=== PATIENT | female | born 1940 | race Caucasian/White ===

== ENCOUNTER → 2024-03-19 09:18 | Outpatient (REF) | payer OTHER, SELFPAY ==
--- NOTE | 2024-03-05 13:32 | TAVREVAL ---
Documented by User: KATY Zimmer 03/05/24 13:41
TAVR Evaluation
Transthoracic Echocardiogram
Transthoracic Echocardiogram Date: 01/01/24
P/M: 94/55
SAHARA: 0.8
AI: mild
EF %: 60
MR/MAC: mild mac and mild MR
Catherization
Catherization Date: 02/20/24
M
SAHARA: 0.42
Findings: severe aortic stenosis, mild to moderate non-obstructive CAD
CAT Scan
CAT Scan Date: 03/19/24
Frailty
MMSE ____: N/A
Physician Visits
Date of Visit CT surgeon: Tito: 03/19/24
Date of Visit Interventionalist:Jerald/Saundra/Harrison/Aurelio: 03/04/24
Primary Scale Balancer Name: Concepcion
Date of Visit Primary Scale Balancer: 01/31/24
PCP Name: Alireza
Dentist Name: Luisito Adams DDS
Review of Systems
Review of Systems: Positive for Dyspnea
Plan
Plan:
03/04/2024: Consult received from Dr. Marques. Called and left voicemail with the patient's daughter, Linette David, with contact information.
03/05/2024: Called and spoke with Linette David. Reviewed the TAVR evaluation process. Emailed all instructions and prescriptions. Mother will go to [facility] today for BMP. CT scan scheduled for 03/19/[address] Francis to follow that same
day. Will email dental clearance to dentist today. Allowed for and answered questions.

Documented by User: KATY Murray 03/22/24 09:29
TAVR Evaluation
Plan
Plan:
03/04/2024: Consult received from Dr. Marques. Called and left voicemail with the patient's daughter, Linette David, with contact information.
03/05/2024: Called and spoke with Linette David. Reviewed the TAVR evaluation process. Emailed all instructions and prescriptions. Mother will go to [facility] today for BMP. CT scan scheduled for 03/19/[address] Francis to follow that same
day. Will email dental clearance to dentist today. Allowed for and answered questions.
03/22/2024: Reviewed Ms. Pimentel with the heart team in the SDM meeting and the team is agreeable to proceed with TF TAVR via (L) access. D/t CAD the team favors a 23mm S3, no BAV and a slow inflation. VM left for patient requesting a CB to schedule
TAVR.
== END ==
LOC: RAD 09:18
PROVIDERS: ATTENDING PHYSICIAN Thoracic Surgery (Cardiothoracic Vascular Surgery); FAMILY PHYSICIAN Internal Medicine
DX: I35.0 Nonrheumatic aortic (valve) stenosis (principal)
CPT/HCPCS: 74174; 75572; Q9967

== ENCOUNTER 2024-04-11 07:34 | Inpatient (IN) | payer OTHER, SELFPAY ==
[2024-04-02 11:43] VITALS: BMI 30.5
[2024-04-02 13:06] LABS: % Basophils 0.5 % (0-2); % Eosinophils 1.5 % (0-6); % Immature Granulocytes 0.3 % (0-0.5); % Lymphocytes 15.3 % (20.5-51.1); % Monocytes 8.7 % (1.7-9.3); % Neutrophils 73.7 % (42.2-75.2); Absolute Eosinophils 0.1 10^3/uL (0-0.7); Absolute Lymphocytes 1.1 10^3/uL (1.2-3.4); Absolute Monocytes 0.6 10^3/uL (0.1-0.6); Absolute Neutrophils 5.4 10^3/uL (1.4-6.5); Hematocrit 34.2 % (37.0-47.0); Hemoglobin 11.4 g/dL (12.0-16.0); Mean Corp Hgb Conc. 33.3 g/dL (33.0-37.0); Mean Corpuscular Hgb 32.1 pg (27.0-31.0); Mean Corpuscular Volume 96.3 fL (81.0-99.0); Mean Platelet Volume 9.4 fL (7.4-10.4); Nucleated Red Blood Cells % 0 %; Platelet Count 301 10^3/uL (130-400); Red Blood Cell Count 3.55 10^6/uL (4.20-5.40); Red Cell Dist. Width 13.5 % (11.5-14.5); White Blood Cell Count 7.4 10^3/uL (4.8-10.8)
[2024-04-02 13:08] LABS: Urine Albumin Negative (Neg - Trace); Urine Bilirubin Negative (Negative); Urine Character Clear (Clear); Urine Color Yellow; Urine Glucose Negative (Negative); Urine Ketone Negative (Negative); Urine Leukocyte Negative (Negative); Urine Nitrite Negative (Negative); Urine Occult Blood Trace (Negative); Urine Specific Gravity 1.015 (<1.030); Urine Urobilinogen Negative (Neg - 1+)
[2024-04-02 13:15] LABS: INR 1.47; PT 17.7 Sec (11.4-14.6)
[2024-04-02 13:17] LABS: ALT (SGPT) 17 U/L (0-35); AST (SGOT) 32 U/L (14-36); Albumin 4.1 g/dl (3.5-5.0); Alkaline Phosphatase 88 U/L (38-126); Blood Urea Nitrogen 15 mg/dl (7-17); Carbon Dioxide 27 mmol/L (22-30); Chloride 103 mmol/L (98-107); Direct Bilirubin 0.2 mg/dl (0.0-0.4); Estimated Creatinine Clearance 61 ml/min; Glucose 94 mg/dl (70-99); Potassium 4.7 mmol/L (3.5-5.1); Sodium 138 mmol/L (135-145); Total Bilirubin 0.9 mg/dl (0.2-1.3); Total Protein 6.8 g/dl (6.3-8.2); eGFR > 60.00
[2024-04-02 13:19] LABS: Urine Urothelial Cell 0-2 /LPF (FEW)
[2024-04-02 13:20] LABS: Urine Bacteria Few (Negative); Urine White Cell 0-2 /HPF (0-5)
[2024-04-02 13:22] LABS: Glycohemoglobin (HgbA1c) 5.6 % (4.0-5.6)
[2024-04-02 13:26] LABS: NT-proBNP 2900 pg/ml
--- NOTE | 2024-04-02 14:15 | CM ---
Chart reviewed. Met with the patient and her friend in [facility]. Reviewed preoperative and postoperative instructions and restrictions. Gave patient 2 soaps, along with showering guidelines. Patient is independent of ADLS, lives alone in a 2 [address] but
also lives in a condo, with elevator access in [place], [place] which is where she is most of the time. When patient is discharged she is going to her daughters house at [address] [place] [id number]. Patient does not use any DME. Patient
is agreeable to a home visit by CT Transitional RN if her daughters house is within the driving radius. Plan is for the patient to go to her daughters house with CT Transitional RN vs follow up phone call from CT Transitional RN. CM to follow
[2024-04-11] VITALS (21 sets, daily range): BP systolic 100–192; BP diastolic 54–102; BMI 29.1
--- NOTE | 2024-04-11 08:37 | W.CVOR.SURPR ---
CVOR Surgeon Immed Pre Op
-
I have examined this patient prior to performance of the scheduled procedure.
The patient's condition is unchanged from the time of the dictated/written History and
Physical and the patient is able to undergo the scheduled procedure.
TF TAVR
Rescue Status: Full at the discretion of her procedural team
[2024-04-11 10:18] LABS: ACT-LR - POC 290 Seconds (116-155)
[2024-04-11 10:28] LABS: ACT-LR - POC 245 Seconds (116-155)
--- NOTE | 2024-04-11 10:44 | W.PN.CT.SURG ---
CT Surgery Operative Note
-
OPERATIVE REPORT
Preoperative Diagnosis: Severe aortic valve stenosis, symptomatic
Postoperative Diagnosis: Same
Procedure(s) Performed: Right trans femoral TAVR with a 23mm Buchanan TAVR valve
Date of Procedure: 04/11/2024
Comorbidities:
1. Severe aortic stenosis, symptomatic
2. 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
3. Atrial fibrillation
4. Hypertension
5. Hyperlipidemia
6. Arthritis
7. Mild to moderate nonobstructive coronary artery disease
8. Shingles
9. Short of sleep apnea
Cardiac Surgeon: Jose Plaza MD, MS
Educational Guidance Counselor: Jhoan Schwartz MD
Anesthesia: Conscious Sedation and Local Analgesia
EBL: 120cc
Products: none
Implant: 23 mm Buchanan SYDNEE ultra TAVR Valve, SN: [id number]
Indication(s) for Procedures: 84-year-old female with symptomatic severe aortic stenosis. CT-TAVR protocol revealed acceptable anatomy for TAVR access and implantation. Multidisciplinary team discussion between interventional cardiology,
cardiology, and cardiac surgery all deemed this an appropriate procedure.
Start time: 0951hrs
Deployment time: 1019hrs
End time: 1035hrs
Radiation Dose (mGy): 170
DAP (cm2.Gy): 25.4409
Fluoroscopy time (minutes): 7.0
Contrast volume (ml): 70
TAVR gradient (mmHg): 6mmHg
Heparin Dose: 6500units
Protamine Dose: 30mg
Final Valve Positionin/20
Findings: Preoperative LVEF was 60% and was 60% following TAVR without inotropic support. Function was overall normal without regional wall motion abnormalities or dyskinesia. The aortic valve was well seated without detectable PVL and mean gradient
across the new valve was 5-8mmHg. following deployment of the TAVR valve, she resumed her regular rhythm and did not require any additional pacing. There was successful placement of 23 mm TAVR valve without acute complications. LVEDP pre-TAVR was
found to be 25 mmHg indicating acute on chronic congestive systolic and diastolic heart failure. Lasix will be given in the ICU.
Access:
1. Device - right common femoral, perclose x 2
2. Pigtail -left common femoral artery [+ 6Fr angioseal]
3. Transvenous Pacer -femoral vein
Description of Procedure: The patient was taken to the pipelines laborer. Their identity and procedure to be performed were verified and they were positioned supine on the pipelines laborer table. Induction via conscious sedation. The patient was then prepped and
draped from chin to thigh in a sterile fashion. A preoperative time-out was performed with all members of the team present. Arterial and venous access was performed using fluoroscopy and ultrasound guidance with micropuncture and Seldinger
technique. Two perclose devices were used on the device side followed by access to the aorta with a stiff wire to facilitate E-sheath placement. Heparin was given. A stiff straight wire and AL-1 catheter was used to cross the aortic valve. An LVEDP
was measured here. The stiff wire was exchanged for an extra stiff coiled tip wire. The valve was prepped and mounted on to the device carrier. An ACT of >250 was achieved. We verified x 3 that the valve was mounted in the correct orientation with
the skirt of the valve directed toward the tip of the device carrier. We advanced the device into the descending thoracic aorta where the valve was them mounted onto the balloon under fluoroscopy. The device was flexed and advanced over the arch
into the root and positioned across the aortic valve. Contrast fluoroscopy was used to visualize the prosthesis across the valve and to guide positioning. A pigtail catheter in the RCC as used as a guide. We aimed to have the bottom of the device
marker at the annular hinge point. The device sheath was pulled back. We performed a quick pre-deployment time out. The pacer was turned on and had capture. Blood pressure fell accordingly, angiography was done to verify the intended final placement
and the valve was deployed with 5 seconds of rapid pacing to nominal volume. The balloon was deflated and the pacer was turned off. We had recovery of vitals. The device carrier was unflexed and positioned back in the descending thoracic aorta. A
transthoracic echocardiogram was performed. The device was removed from the E-Sheath maintaining wire access followed by removal of the E-sheath as we cinched down the perclose devices. There was acceptable hemostasis. The pigtail was withdrawn into
the descending/abdominal and completion aortogram with runoff run-off angiography was performed. There was no stenosis or dissection of bilateral iliofemoral systems. There was acceptable hemostasis of bilateral groins and manual pressure was held
following wire removal. Low dose protamine was administered after checking another ACT.
All instrument, sponge, and needle counts were confirmed to be correct x 2 at the end of the operation. The patient was transferred to the cardiac intensive care unit in stable condition.
I, Dr. Jose Plaza, was present, scrubbed for, and performed all critical elements of this procedure.
Jose Plaza MD
Cardiothoracic Surgeon
[facility]
This operative dictation was created using the [employer] dictation system. Please excuse any grammatical, typographical, or 'sound alike' errors
--- NOTE | 2024-04-11 10:55 | ITS.CL.TAVR ---
Forest Fire Management Officer - TAVR Report
TAVR PRocedure
Procedure Report:
TRANSCATHETER AORTIC VALVE REPLACEMENT REPORT
Date: 04/11/24
Referring physician: Tito Javier
Preop diagnosis: severe aortic stenosis
Postop diagnosis: severe aortic stenosis
Procedure: transcatheter aortic valve replacement (TAVR) using a #23 Buchanan XIAO S3 Ultra
Operators: Vaibhav Schwartz MD, PhD; CINDY Walden, [facility]; Umesh Marques MD, [facility]
Findings: severely calcified and stenotic aortic valve
Anesthesia: Conscious sedation was provided by the anesthesia staff.
Estimated blood loss: negligible
Complications: none
Condition: stable
Procedure:
The patient was brought to the cardiac laborer cement gun placing after consent and was prepped and draped in standard sterile fashion. Conscious sedation was provided by the anesthesia staff. After a 'Time Out,' the left common femoral artery and vein were access
using a modified Seldinger technique with a micropuncture kit under ultrasound guidance. A 6 Telugu sheath was placed in both vessels. A temporary pacing wire was advanced through the left femoral vein and into the right ventricle, capture verified,
and set to backup. A 5Fr angled pigtail catheter was advanced through the left femoral sheath and seated in the right coronary cusp. Angiography confirmed co-planar angle. The right common femoral artery (device side) was accessed using a modified
Seldinger technique with a micropuncture kit under ultrasound guidance followed by placement of a 6Fr sheath. The tract was dilated with an 8Fr sheath, followed by placement of two Perclose sutures in 'pre-close' fashion and replacement of the 8F
sheath.
An AL-1 catheter was advanced through the 8Fr sheath, the J wire was exchanged for an Amplatz Superstiff wire in the descending aorta, and the catheter and the 8 Fr sheath removed. A 16 Fr dilator was advanced over the Superstiff wire to the
descending aorta. The dilator was removed and the 14 Fr Buchanan E-sheath was inserted over the wire and into the descending aorta. Heparin 6500 units was given. The XIAO S3 was prepared on the back table. Orientation was confirmed by both
physicians. The AL-1 catheter was re-advanced through the E-sheath to the level of the ascending aorta. The Superstiff wire was removed and a soft tip straight wire was advanced through the AL-1 and used to cross the aortic valve and the catheter
advanced into the left ventricle. The straight wire was exchanged for an Amplatz Extrastiff wire with curved proximal end placed in the left ventricle apex and the catheter removed. ACT was checked and confirmed to be > 250 seconds.
The valve was advanced over the Extrastiff wire and into the descending aorta. The balloon was withdrawn and the valve was mounted on the balloon. The valve was advanced over the aortic arch and into the aortic valve annulus. The pusher device was
withdrawn to allow for balloon expansion. Low volume aortography confirmed good position of the valve. The valve was deployed during rapid ventricular pacing. Echocardiography and aortography confirmed a good result with no aortic valve
insufficiency and a 6 mmHg mean gradient. The valve deployment system was removed. Stable rhythm was confirmed and the pacemaker was removed. The Buchanan E sheath was then removed and hemostasis obtained with the two Perclose sutures. Final
angiography demonstrated no evidence of ileofemoral dissection/perforation and good runoff below the common femoral artery. The pigtail catheter was removed and hand injection angiography through the left common femoral artery sheath demonstrated
appropriate HIGH SCHOOL FOOTBALL COACH placement. The left common femoral artery sheath removed and closed with a 6 Fr Angioseal. The left femoral venous sheath was removed and manual pressure was applied with excellent hemostasis.
Radiation
Dose (mGy): 170.0
DAP (cm2.Gy): 25.4409
Fluoroscopy time (minutes): 7.0
pre-deployment LV pressure (s/x, mmHg): 185/13 (EDP 25)
post-deployment mean TAVR echo gradient (mmHg): 6
Conclusions:
1. successful placement of #23 Xiao S3 Ultra aortic valve via right transfemoral approach with no acute complications.
2. acute on chronic heart failure with elevated filling pressures (LVEDP = 25 mmHg).
Vaibhav Schwartz MD, PhD
Copy to: Andres Lay MD; Brennen Francis MD; Tito Javier MD
--- NOTE | 2024-04-11 12:19 | CM ---
Reviewed chart. Mrs. Pimentel is in the operating room today. She will be going to stay with her daughter in [place] when ready for discharge. Prior to admission she spends most of her time in her condo in [place]. Prior to
admission she was independent with ambulation and adls. She does not have any DME in the home. Medical work-up in progress. The discharge plan is to go to her daughter's home and a home visit by the Cardiothoracic Transitional Care Nurse when
medically stable.
--- NOTE | 2024-04-11 12:36 | PTCARENOTE ---
Patient received from bolt labeler. Bedrest maintained, A fin 40-50's. Pulses verified with Doppler.
--- NOTE | 2024-04-11 13:17 | PTCARENOTE ---
Patient soundly sleeping, snoring. A-Fib with some 2 second pauses HR 37-58. Notified Scarlett Nia, right groin mildly tender. Pulses with Doppler on the right, palpable on the left
--- NOTE | 2024-04-11 15:12 | PTCARENOTE ---
Bladder scan 894, having pressure unable to void. Straight cath 1300 cc of yellow urine.
[2024-04-11] MEDS: LASIX 20 MG IV (15:21)
[2024-04-11] MEDS: ANCEF 5 IV (15:22)
--- NOTE | 2024-04-11 15:53 | PTCARENOTE ---
BP elevated 192/83. Home BP medications resumed. Patient out of bed, walked to the bathroom, voided, missed hand, pale yellow urine. In chair. Right groin dressing old bloody scant drainage.
[2024-04-11] MEDS: NORVASC 2.5 MG PO (16:30)
[2024-04-11] MEDS: ZESTRIL 10 MG PO (16:30)
--- NOTE | 2024-04-11 21:08 | PTCARENOTE ---
Received patient at change of shift. Left groin site dry, clean, intact, and soft to touch. Left pedal pulse normal on palpation. Right groin site old drainage and tender to touch. Right pedal pulse with doppler. Applied new dressing to right groin.
Neuro intact, alert and oriented. Ambulating to chair and bathroom. Urinating. Steady on feet. HR 50s-60s, A-Fib. Elevated BP-- 173/61, 183/71. GUANACO Fernandez, was bedside. Put in PRN order for Hydralazine. BP rechecked-- 157/78. Discussed
calling care team with any changes. Call yarbrough within reach.
--- NOTE | 2024-04-12 03:13 | W.PN.CT ---
Documented by User: [email or web address] Dotson PA-C 04/12/24 03:13
Today's Communication / Plan
-
-pod #1
-no issues overnight
-in a-fib 50s-60s overnight. No significant pauses. Continue 25 mg Toprol
-diuresed 1775cc with iv Lasix
-hypertensive postop - got Norvasc and Lisinopril 04/11- continue
-resume Eliquis 04/12 for a-fib
-Echo today
-current meds (Eliqius, Norvasc, Lisinopril, Toprol)
-encourage IS, OOB, ambulate
-possible d/c soon
Assessment / Plan
-
- Severe symptomatic - s/p Right trans femoral TAVR with a 23mm Buchanan TAVR valve on 04/11/24, pod #1
- LVEDP pre-TAVR was found to be 25 mmHg indicating acute on chronic congestive systolic and diastolic heart failure- diuresed 1775 cc with iv Lasix
- Preop LVEF was 60% and was 60% following TAVR without inotropic support; no wma or dyskinesia. The aortic valve was well seated without detectable PVL and mean gradient across the new valve was 5-8mmHg.
- Acute on chronic congestive systolic and diastolic heart failure
- Chronic Atrial fibrillation- on Eliquis preop
- Hypertension
- Hyperlipidemia
- Arthritis
- Mild to moderate nonobstructive coronary artery disease
- Shingles
- GWEN - on CPAP
- Anxiety
- Acute postop urinary retention- straight cathed postop - resolved
Discussed patient care with: Nursing and Care Team
Subjective
Procedure
s/p Right trans femoral TAVR with a 23mm Buchanan TAVR valve on 04/11/24
-
Date of Service: April 12, 2024
Objective Data
-
PT 17.7 Sec (11.4-14.6) H 04/02/24 12:12
INR 1.47 04/02/24 12:12
APTT 42.0 Sec (23.4-35.0) H 04/02/24 12:12
Vital Signs
Vital Signs
Temp Pulse Resp BP Pulse Ox
98.6 F 77 16 158/80 97
04/11/24 23:02 04/12/24 01:15 04/11/24 23:02 04/11/24 22:55 04/11/24 23:02
CT Intake/Output/Weight
04/11/24 04/11/24 04/12/24
06:59 18:59 06:59
Intake Total 500 / 500
Output Total 1775 / 2125 350 / 2125
Balance -1275 / -1625 -350 / -1625
SaO2: 97
Physical Exam
-
General: Awake and AOx3
Cardiovascular: Irregular rate & rhythm, No Murmurs and No Rub
Respiratory: Decreased Breath Sounds
Incision: Other (groins are cdi, soft, no hematoma b/l. R groin slightly tender to touch)
Extremities: Other (trace edema b/l. DPs by Doppler b/l)
Data Reviewed
-
Lab Results: Results Reviewed
Medications: Active Meds Reviewed
Chest X-Ray: Report Reviewed and Image Reviewed
ECG: Report Reviewed and Image Reviewed

Documented by User: KATY Raya 04/12/24 10:28
Assessment / Plan
-
- Severe symptomatic - s/p Right trans femoral TAVR with a 23mm Buchanan TAVR valve on 04/11/24, pod #1
- LVEDP pre-TAVR was found to be 25 mmHg indicating acute on chronic congestive systolic and diastolic heart failure- diuresed 1775 cc with iv Lasix
- Preop LVEF was 60% and was 60% following TAVR without inotropic support; no wma or dyskinesia. The aortic valve was well seated without detectable PVL and mean gradient across the new valve was 5-8mmHg.
- Acute on chronic congestive systolic and diastolic heart failure
- persistent Atrial fibrillation- on Eliquis preop
- Permanent atrial fibrillation
- Hypertension
- Hyperlipidemia
- Arthritis
- Mild to moderate nonobstructive coronary artery disease
- Shingles
- GWEN - on CPAP
- Anxiety
- Acute postop urinary retention- straight cathed postop - resolved
[2024-04-12 03:59] VITALS: BP 176/75
[2024-04-12 04:31] LABS: Hematocrit 33.3 % (37.0-47.0); Hemoglobin 11.4 g/dL (12.0-16.0); Mean Corp Hgb Conc. 34.2 g/dL (33.0-37.0); Mean Corpuscular Hgb 33.4 pg (27.0-31.0); Mean Corpuscular Volume 97.7 fL (81.0-99.0); Mean Platelet Volume 9.2 fL (7.4-10.4); Platelet Count 196 10^3/uL (130-400); Red Blood Cell Count 3.41 10^6/uL (4.20-5.40); Red Cell Dist. Width 13.3 % (11.5-14.5); White Blood Cell Count 10.2 10^3/uL (4.8-10.8)
[2024-04-12] MEDS: NORVASC 2.5 MG PO (04:31)
[2024-04-12] MEDS: ZESTRIL 10 MG PO (04:31)
--- NOTE | 2024-04-12 04:52 | PTCARENOTE ---
Addendum entered by Katharine Torres RN 04/12/24 06:20:
Improved BP-- 159/84.
Original Note:
Patient rested well overnight. A-Fib 60s-70s. Elevated BP this morning 176/75. Updated GUANACO Fernandez. Orders placed for Lisinopril and Norvasc-- see MAR. No changes in groins. Right groin devulcanizer tender to touch, soft. Educated patient to
call RN for assistance out of bed.
[2024-04-12 04:54] LABS: Blood Urea Nitrogen 19 mg/dl (7-17); Calcium 9.3 mg/dl (8.4-10.2); Carbon Dioxide 29 mmol/L (22-30); Chloride 100 mmol/L (98-107); Estimated Creatinine Clearance 70 ml/min; Glucose 118 mg/dl (70-99); Sodium 136 mmol/L (135-145); eGFR > 60.00
[2024-04-12 06:14] VITALS: BP 159/84
[2024-04-12 06:43] VITALS: BP 176/87
[2024-04-12 07:01] VITALS: BP 143/74
[2024-04-12 07:27] VITALS: BMI 29.9
--- NOTE | 2024-04-12 07:58 | W.PN.ANS.POP ---
Anesthesia Post Operative
- Anesthesia Post Op Note
Vital Signs Stable-See Nursing Note: Yes
Airway Patent: Yes
Adequate Pain Control: Yes
Change in Mental Status: No
Current Postoperative Nausea & Vomiting: No
Anesthesia Complications: No
General Anesthetic Recall: No
Unplanned Admission: No
Post Op Hydration Adequate: Yes
- -
Pt awake and alert- OOB to chair with no anesthesia r/t c/o at time of post op visit.
--- NOTE | 2024-04-12 07:59 | W.DCSUMMARY ---
Discharge Summary
Discharge Data
Date of Admission: 04/11/24
Date of Discharge: 04/12/24
-
Pending Results: No
Hospital Course
Primary care physician: RADHA Lay
Outpatient on site property manager: Tito Javier
Inpatient consultants: [facility]
Procedures:
1. TAVR
Primary Diagnosis:
1. Severe aortic valve stenosis
Secondary Diagnoses:
1. acute on chronic congestive systolic and diastolic heart failure (LVEDP pre-TAVR 25 mmHg)
3. permanent Atrial fibrillation
4. Hypertension
5. Hyperlipidemia
6. Arthritis
7. Mild to moderate nonobstructive coronary artery disease
8. Obstructive sleep apnea
HPI: 84-year-old female was electively admitted on 04/11/2024 for TAVR
Hospital course: Patient underwent right trans femoral TAVR #23mm Buchanan valve with Drs. Jose Plaza/Anshu Marques. Valve was deployed without incident. Patient received Lasix 20 mg intravenous postop for LVEDP 25. Patient was hypertensive in
the postop period as she had been taking morning meds. Patient received lisinopril and Norvasc doses. Chest x-ray reported no pneumothorax. TTE completed on 04/12 reported EF of 65-70%, AV gradients of 36/21mmHg and trivial paravalvular leak.
Patient instructed on need to inform medical and EF of 65-70%, AV gradients of 36/21, and trace paravalvular AI. Providers of tissue aortic valve replacement and need for prophylactic antibiotics prior to dental and other invasive procedures.
Patient ambulated in room without difficulty and is deemed stable for discharge to home today.
Home medication changes:
none
Discharge Plan
-
Patient Disposition: Home (Routine Discharge)
Discharge Diagnosis/Procedures: TF-TAVR
Condition: Good
Diet: Low Cholesterol and 2 Gram Sodium
Activity: As tolerated
Driving Restrictions: No driving for 1 week
Bathing Restrictions: OK to Shower
Others Tests: Follow Up Echocardiogram: 05/13/2024 at 10:40am in Dr. Javier's office.
Other Services: Cardiac Rehab
Wound Care: Please do not apply lotions, creams or powders to groin areas. Please monitor for increased redness, pain, swelling or drainage. Call your doctor if any occur.
Specialty Instructions: Weigh Daily- Call MD for wt gain/loss 3 lbs overnight/5 lbs in 1 week
Activity Restrictions/Additional Instructions:
Notify medical providers of history of aortic valve replacement and need for antibiotic prophylaxis prior to dental and invasive procedures
Referrals:
CT Transitional Care Nurse [Outside] - in one to two days
(
The Cardiothoracic Transitional Care Nurse will call you to set up a visit in 1-2 days.)
Ino Brandt MD [Active] - 05/09/24 3:00 pm
Quang Lay MD [Family Provider] - in four to six weeks (Please make an appointment in four to six weeks. )
Prescriptions:
New
acetaminophen 325 mg Tablet
650 mg PO Q4HPRN PRN (Reason: PAYTON, mild pain, or fever >101F) Qty: 0 0RF
Continued
amlodipine 2.5 mg Tablet
2.5 mg PO DAILY Qty: 0 0RF
lisinopril 10 mg Tablet
10 mg PO DAILY Qty: 0 0RF
metoprolol succinate 25 mg Tablet Extended Release 24 Hr
25 mg PO DAILY Qty: 0 0RF
Eliquis 5 mg Tablet
5 mg PO BID Qty: 0 0RF
sertraline 50 mg Tablet
50 mg PO DAILY Qty: 0 0RF
rosuvastatin 10 mg Tablet
10 mg PO DAILY Qty: 0 0RF
Calcium 500 + D (D3)
1 cap PO DAILY Qty: 0 0RF
Vitamin C
1 cap PO DAILY Qty: 0 0RF
Changed
Baby Aspirin
81 mg PO DAILY Qty: 30 0RF
Discontinued
ibuprofen 200 mg Tablet
200 - 400 mg PO PRN PRN (Reason: pain)
Discharge Orders:
Discharge Patient (As Directed); Ordered 04/12/24
Ordered By: Scarlett Kramer
Care Plan Goals
Care Plan Goals:
Problem: Readiness for enhanced knowledge related to diagnosis and treatment plan
Goal: Understand your diagnosis and treatment plan needs, including medications if applicable.
Instructions: Know your diagnosis, underlying causes and treatment plan options, including medications if applicable. Consult with your health care team to learn about your diagnosis and treatment plan, including medications if applicable.
Discharge Date and Time
Print Language: MALAYSIAN
--- NOTE | 2024-04-12 08:17 | W.PN.CD ---
Today's Communication / Plan
-
-Clinically stable after TAVR procedure yesterday.
-Echocardiogram today; likely discharge to home after.
Impression / Plan
-
84-year-old female with severe aortic stenosis admitted for elective TAVR.
TAVR:
-Clinically stable after TAVR procedure yesterday.
-Echocardiogram today; likely discharge to home after.
Atrial fibrillation:
-Rate-controlled on telemetry.
-Continue Eliquis and metoprolol succinate.
Hypertension:
-Continue current doses of lisinopril, metoprolol succinate, and amlodipine.
Hyperlipidemia:
-Continue current dose of rosuvastatin.
Physical Exam
Vital Signs/Labs
Vital Signs
Temp Pulse Resp BP Pulse Ox
99.1 F 67 16 143/74 96
04/12/24 06:39 04/12/24 07:15 04/12/24 06:39 04/12/24 07:01 04/12/24 06:39
04/11/24 04/12/24 04/13/24
06:59 06:59 06:59
Actual Weight 79.379 kg 81.4 kg
04/12/24 04:00
04/12/24 04:00
PT 17.7 Sec (11.4-14.6) H 04/02/24 12:12
INR 1.47 04/02/24 12:12
APTT 42.0 Sec (23.4-35.0) H 04/02/24 12:12
04/02/24
12:12
Zka-S-Opoexxlutyt Pept 2900
Physical Exam
Constitutional: No acute distress and Comfortable
EENT: Anicteric
Cardiovascular: Pedal edema is absent, Rhythm/rate is irregular, Systolic murmur present (2/6) and S1S2 is normal
Respiratory: Respiratory effort normal and Lungs clear to auscul.
GI: Soft
Neuro/Psych: AO x 3
Other: Skin (Warm, dry, intact)
Data Reviewed
-
Date of Service: April 12, 2024
EKG: Tracing Personally Visualized and interpreted (Telemetry: A-fib)
Medical Tests (PFT, Pathology etc): Report Reviewed by me
Labs: Labs Reviewed by me
[2024-04-12] MEDS: CRESTOR 10 MG PO (09:01)
[2024-04-12] MEDS: TOPROL XL 25 MG PO (09:01)
[2024-04-12] MEDS: ZOLOFT 50 MG PO (09:05)
--- NOTE | 2024-04-12 10:15 | PN.CDI ---
CDI
- -
CDI:
Physician Documentation Request
Admit Date: 04/11/24 07:[address] team,
Please review the following and provide your response in the progress notes.
Clinical Indicators:
Pt admitted with Severe aortic stenosis, for TAVR.
Pt's PMHx includes Afib
Afib diagnoses on 04/02, 04/11, and 04/12 EKG.
Pt's home medication includes Eliquis
If possible, please provide further specificity regarding atrial fibrillation, such as:
Paroxysmal atrial fibrillation - terminates spontaneously or with intervention within 7 days of onset
Persistent atrial fibrillation - episodes of continuous AF that last more than 7 days and do not self-terminate
Permanent atrial fibrillation - when a decision has been made to accept the presence of AF and there is no further attempt to restore or maintain sinus rhythm
Other - please specify
Use of terms such as suspected, likely, concern for, or probable (associated with a specific diagnosis that is being evaluated, monitored, or treated as if it exists) are acceptable and can be coded in the inpatient setting, when documented at the
time of discharge.
Thank you,
Graciela Gamino RN, BSN
CDI Specialist
Available via [place] [employer]
Please use your independent medical judgment in providing your response.
[2024-04-12 11:06] VITALS: BP 160/57
--- NOTE | 2024-04-12 11:14 | CM ---
Reviewed chart. Met with Mrs. Pimentel and her son-in-law to review discharge plans. She states she is feeling well and maybe able to go home soon. She states she has been ambulating in the room. She states she is planning on going to stay with her
daughter in [place]. The address is [address] [place] [address]. She states her daughter home is a two story home but she is planning on staying on the first floor and only going up the stairs once a day to sleep. She states prior to
admission she was independent with ambulation and adls. She states she does not have any DME in the home. She states she has a prescription plan and uses [facility]. Medical work-up in progress. The discharge plan is to go to her daughter's
home with a home visit by the Cardiothoracic Transitional Care Nurse when medically stable.
--- NOTE | 2024-04-12 13:11 | PTCARENOTE ---
Patient discharged to home. All belongings sent, discharge teaching completed, verbalized understanding. Family here to transport to home
== END 2024-04-12 13:33 | disposition home or self-care (01) | DRG 266 ==
LOC: IVU 07:34
PROVIDERS: Physician Assistant Medical; ADMITTING PHYSICIAN Thoracic Surgery (Cardiothoracic Vascular Surgery); CONSULT PHYSICIAN Internal Medicine Cardiovascular Disease; FAMILY PHYSICIAN Internal Medicine
PROC: 02RF38Z Replacement of Aortic Valve with Zooplastic Tissue, Percutaneous Approach (ICD-10-PCS; 2024-04-11)
DX: I35.0 Nonrheumatic aortic (valve) stenosis (principal); I50.43 Acute on chronic combined systolic (congestive) and diastolic (congestive) heart failure; I48.21 Permanent atrial fibrillation; I11.0 Hypertensive heart disease with heart failure; E78.5 Hyperlipidemia, unspecified; M19.90 Unspecified osteoarthritis, unspecified site; I25.10 Atherosclerotic heart disease of native coronary artery without angina pectoris; G47.33 Obstructive sleep apnea (adult) (pediatric); F41.9 Anxiety disorder, unspecified; R33.8 Other retention of urine; Z79.01 Long term (current) use of anticoagulants; Z79.899 Other long term (current) drug therapy; Z82.49 Family history of ischemic heart disease and other diseases of the circulatory system
CPT/HCPCS: 93308; 33361; 36415; 71045; 71046; 76937; 80048; 80053; 81003; 81015; 82248; 83036; 83880; 85025; 85027; 85347; 85610; 85730; 86850; 86900; 86901; 86920; 87070; 93005; 93306; 93321; 93325; C1760; C1769; C1894; Q9967